=== PATIENT | male | born 1990 | race Hispanic/Latino ===

== ENCOUNTER 2017-07-12 23:56 | Emergency (ER) | payer SELFPAY ==
[~2017-07-12] VITALS: Ht 182.9 cm; Wt 127.0 kg
[2017-07-13] MEDS ORDERED: ACETAMINOPHEN 325 MG TAB ONE (00:35)
[2017-07-13] MEDS ORDERED: ACETAMINOPHEN 325 MG TAB PO ONE (00:45)
== END 2017-07-13 00:45 | disposition left against medical advice (07) ==
LOC: ER 23:56
DX: R50.9 Fever, unspecified (principal)

== ENCOUNTER 2018-08-31 10:11 | Emergency (ER) | payer SELFPAY ==
[~2018-08-31] VITALS: Ht 182.9 cm; Wt 145.1 kg
== END 2018-08-31 10:34 | disposition left against medical advice (07) ==
LOC: ER 10:11
DX: R51 Headache (principal)